=== PATIENT | female | born 1965 | race Caucasian/White ===

== ENCOUNTER 2016-11-10 11:55 | Emergency (ER) | payer OTHER ==
--- NOTE | 2016-11-10 12:31 | Emergency Department Record ---
History of Present Illness - General Chief Complaint: Cough Stated Complaint: COUGH/FEVER/CHILLS/SOB Time Seen by Provider: 11/10/16 12:22 Source: Patient Mode of Arrival: Ambulatory Limitations: No limitations - History of Present Illness Initial Comments: 51 yo female presents with cough, congestion, and fevers. She reports a history of pneumonia and feels like this is very similar. No NVD. She denies a history of asthma. No rash. No edema of the legs. She did not get a flu shot this year. She is not a smoker. She has been around many people at work with similar symptoms. She has difficulty breathing through her nose due to congestion. MD Complaint: Cough, Fever Onset/Timin -: Hour(s) Quality: Aching Consistency: Constant Improves With: Nothing Worsens With: Other (coughing) Context: Sick contacts Associated Symptoms: Cough - Related Data Home Medications Medication Instructions Recorded Confirmed Last Taken Ezetimibe [Zetia] 10 mg PO DAILY 11/10/16 11/10/16 11/10/16 Levothyroxine Sodium [Synthroid] 50 mcg PO DAILY 11/10/16 11/10/16 11/10/16 Methotrexate Sodium/Pf 25 mg IJ WEEKLY 11/10/16 11/10/16 11/01/16 [Methotrexate 200 mg/8 ml Vial] Omeprazole [Prilosec] 20 mg PO DAILY 11/10/16 11/10/16 11/10/16 Rosuvastatin Calcium [Crestor] 40 mg PO DAILY 11/10/16 11/10/16 11/10/16 Previous Rx's Medication Instructions Recorded Levofloxacin [Levaquin] 500 mg PO DAILY #6 tablet 11/10/16 Allergies Allergy/AdvReac Type Severity Reaction Status Date / Time azithromycin AdvReac RASH Verified 11/10/16 12:28 iodine AdvReac RASH Verified 11/10/16 12:29 Penicillins AdvReac RASH Verified 11/10/16 12:23 Travel Screening - Travel/Exposure Within Last 30 Days Have you traveled within the last 30 days?: No - Travel/Exposure Within Last Year Have you traveled outside the [place] in the last year?: No - Additonal Travel Details Have you been exposed to anyone with a communicable illness?: No - Travel Symptoms Symptom Screening: None Review of Systems Constitutional: Reports: Fever, Malaise. Denies: Chills Eyes: Denies: Eye discharge, Eye pain, Photophobia ENT: Reports: Congestion. Denies: Throat pain Respiratory: Reports: Cough. Denies: Dyspnea, Hemoptysis, Stridor Cardiovascular: Denies: Chest pain, Palpitations, Syncope Endocrine: Denies: Fatigue Gastrointestinal: Denies: Abdominal pain, Diarrhea, Nausea, Vomiting Genitourinary: Denies: Dysuria Musculoskeletal: Denies: Arthralgia, Back pain, Myalgia, Neck pain Skin: Denies: Bruising, Change in color, Rash Neurological: Denies: Confusion, Headache Psychiatric: Denies: Anxiety Hematological/Lymphatic: Denies: Blood Clots, Easy bleeding, Easy bruising, Swollen glands Physical Exam - General General Appearance: Alert, Oriented x3, Cooperative, No acute distress Limitations: No limitations - Head Head exam: Atraumatic, Normal inspection - Eye Eye exam: Normal appearance, PERRL. negative: Conjunctival injection, Periorbital swelling - ENT ENT exam: Normal exam, Mucous membranes moist, Normal orophraynx, TM's normal bilaterally Ear exam: Normal external inspection. negative: External canal tenderness Nasal Exam: Discharge (clear), Other (nasal mucosal edema). negative: Normal inspection, Active bleeding, Sinus tenderness Mouth exam: Normal external inspection, Tongue normal Teeth exam: Normal inspection. negative: Dental caries Throat exam: Normal inspection. negative: Tonsillar erythema, Tonsillomegaly, Tonsillar exudate, R peritonsillar mass, L peritonsillar mass - Neck Neck exam: Normal inspection, Full ROM. negative: Lymphadenopathy, Tenderness - Respiratory Respiratory exam: Normal lung sounds bilaterally, Other (Normal respiratory effort, non labored). negative: Respiratory distress, Rhonchi, Stridor, Wheezes - Cardiovascular Cardiovascular Exam: Regular rate, Normal rhythm, Normal heart sounds - GI/Abdominal GI/Abdominal exam: Soft - Rectal Rectal exam: Deferred - exam: Deferred - Extremities Extremities exam: Normal inspection, Full ROM, Normal capillary refill. negative: Tenderness - Back Back exam: Reports: Normal inspection, Full ROM. Denies: Muscle spasm, Rash noted, Tenderness - Neurological Neurological exam: Alert, Normal gait, Oriented X3 - Psychiatric Psychiatric exam: Normal affect, Normal mood - Skin Skin exam: Dry, Intact, Normal color, Warm Course Vital Signs 11/10/16 12:05 Temperature 97.5 F L Pulse Rate 74 Respiratory 20 Rate Blood Pressure 164/87 Pulse Ox 95 - Reevaluation(s) Reevaluation #1: Vitals reviewed No tachycardia or hypoxia 11/10/16 12:26 Reevaluation #2: The CXR was reviewed by me No acute process visualized 11/10/16 12:50 Reevaluation #3: The influenza are negative for A and B Given she is on Methotraxate she will be treated as she is at risk due to immunocompromise 11/10/16 12:55 Disposition Disposition: Discharge Clinical Impression: Bronchitis Sinusitis Qualifiers: Sinusitis location: frontal Chronicity: acute Recurrence: not specified as recurrent Qualified Code(s): J01.10 - Acute frontal sinusitis, unspecified Disposition: Home, Self-Care Condition: (1) Good Instructions: Acute Bronchitis (ED) Additional Instructions: Immediately return if you have fevers, chills, shortness of breath or new concerns Call your doctor tomorrow for close follow up levaquin daily for 6 more days Prescriptions: Levofloxacin [Levaquin] 500 mg PO DAILY #6 tablet Forms: Patient Portal Access Time of Disposition: 12:57
[2016-11-10 12:54] LABS: INFLUENZA A NEGATIVE (NEGATIVE); INFLUENZA B NEGATIVE (NEGATIVE)
[2016-11-10] MEDS ORDERED: LEVOFLOXACIN 500 MG TABLET PO ONE (12:56)
--- NOTE | 2016-11-14 13:39 | RADIOLOGY REPORT ---
EXAM: CHEST, TWO VIEWS HISTORY: PATIENT HAS COUGH TIMES THREE DAYS AND HISTORY OF PNEUMONIA TIMES TWO YEARS. PATIENT HAS CHEST PRESSURE. TECHNIQUE: Two views of the chest were provided without comparison studies. FINDINGS: The cardiomediastinal silhouette is within normal limits for size and contour. The lili appear unremarkable. There is no radiographic evidence of a focal infiltrate or pleural effusion. No pneumothorax is noted. IMPRESSION: NO RADIOGRAPHIC EVIDENCE OF AN ACUTE INTRATHORACIC PROCESS. JOB NUMBER: [id number] MTDD
== END 2016-11-10 13:12 | disposition home or self-care (01) ==
LOC: ER 11:55
DX: J20.9 Acute bronchitis, unspecified (principal); J01.10 Acute frontal sinusitis, unspecified; R07.89 Other chest pain
CPT/HCPCS: 71020; 87400; 99283